=== PATIENT | male | born 1955 | race Caucasian/White ===

== ENCOUNTER 2020-06-26 17:28 | Emergency (ER) | payer OTHER, MEDICAID ==
[~2020-06-26] VITALS: Ht 170.2 cm; Wt 97.5 kg
[~2020-06-26 17:28] MED LIST: HYDR12.56; LISI-646
[2020-06-26 21:13] VITALS: BP 103/52
== END 2020-06-26 21:35 | disposition home or self-care (01) ==
LOC: ER 17:29
DX: S61.216A Laceration without foreign body of right little finger without damage to nail, initial encounter (principal); W23.0XXA Caught, crushed, jammed, or pinched between moving objects, initial encounter; Y93.89 Activity, other specified; Y92.89 Other specified places as the place of occurrence of the external cause; Y99.8 Other external cause status
CPT/HCPCS: 12001

== ENCOUNTER 2023-05-13 15:51 | Emergency (ER) | payer OTHER, MEDICAID ==
[~2023-05-13] VITALS: Ht 170.2 cm; Wt 80.4 kg
[~2023-05-13 15:51] MED LIST changes: -HYDR12.56; +HYDR12.59; -LISI-646; +LISI20TA56
[2023-05-13] MEDS ORDERED: CYCL-837 PO (20:30)
[2023-05-13] MEDS ORDERED: HYDROcodone-ACET 5/325MG TAB PO ONE (20:30)
[2023-05-13] MEDS ORDERED: IBUP-1455 PO (20:30)
[2023-05-13 21:00] VITALS: BP 119/77; PULSE 67; RESP 20; TEMP 98.1; O2SAT 100
== END 2023-05-13 21:02 | disposition home or self-care (01) ==
LOC: ER 15:51
DX: S00.01XA Abrasion of scalp, initial encounter (principal); I10 Essential (primary) hypertension; Z79.899 Other long term (current) drug therapy; W22.8XXA Striking against or struck by other objects, initial encounter; Y93.89 Activity, other specified; Y92.89 Other specified places as the place of occurrence of the external cause; Y99.8 Other external cause status
CPT/HCPCS: 70450; 72125

== ENCOUNTER 2024-02-21 03:33 | Emergency (ER) | payer OTHER, MEDICAID ==
[~2024-02-21] VITALS: Ht 170.2 cm; Wt 72.0 kg
[~2024-02-21 03:33] MED LIST changes: +CYCL-837 PO; +IBUP-1455 PO
[2024-02-21] MEDS: ONDANSETRON HCL 4 MG/2 ML VIAL IV ONE (04:23)
[2024-02-21 04:40] VITALS: RESP 96; O2SAT 96
[2024-02-21 04:43] LABS: Basophils # (auto) 0.1 10 ^3/uL (0-0.2); Basophils % (auto) 1.4 % (0.0-2.0); Eosinophils # (auto) 0.2 10 ^3/uL (0-0.8); Eosinophils % (auto) 3.9 % (0.0-7.0); Hematocrit 39.8 % (41.0-53.0); Lymphocytes # (auto) 0.7 10 ^3/uL (0.4-5.4); Lymphocytes % (auto) 15.9 % (10.0-50.0); Mean Corpuscular Hemoglobin 31.3 pg (28.0-32.0); Mean Corpuscular Hgb Conc. 35.2 g/dL (32.0-36.0); Mean Corpuscular Volume 89.1 fL (80.0-100.0); Monocytes # (auto) 0.7 10 ^3/uL (0-1.3); Monocytes % (auto) 14.9 % (0.0-12.0); Neutrophils # (auto) 2.8 10 ^3/uL (1.6-8.6); Neutrophils % (auto) 63.9 % (37.0-80.0); Nucleated Red Blood Cells % 0.1 %; Red Blood Cells 4.47 10^6/uL (4.5-5.90); Red Cell Distribution Width 15.3 % (11.8-14.3); White Blood Cell 4.4 10^3/uL (4.4-10.8)
[2024-02-21 04:57] LABS: Alanine Aminotransferase 19 U/L (7-40); Albumin 3.6 g/dL (3.2-4.8); Alkaline Phosphatase 53 U/L (46-116); Anion Gap 6 (5-15); Aspartate Aminotransferase 25 U/L (13-40); BUN/Creatinine Ratio 20.3 (10.0-20.0); Blood Urea Nitrogen 15 mg/dL (9-23); Calcium 9.7 mg/dL (8.7-10.4); Carbon Dioxide 25 mmol/L (20-30); Chloride 111 mmol/L (98-107); Glucose 120 mg/dL (74-106); Lipase 36 U/L (12-53); Potassium 3.2 mmol/L (3.5-5.1); Sodium 142 mmol/L (136-145)
[2024-02-21] MEDS: MORPHINE SULFATE 4 MG/ML SYR/VIAL IV ONE (05:17)
[2024-02-21] MEDS: SODIUM CHLORIDE 0.9% 1,000 ML IV ONE (05:18)
[2024-02-21] MEDS ORDERED: ZOFR4T PO (05:36)
[2024-02-21] MEDS: POTASSIUM CHL 20 Meq TABLET PO ONE (05:58)
[2024-02-21 08:04] VITALS: BP 109/75; PULSE 63; RESP 16; TEMP 98.7; O2SAT 95
== END 2024-02-21 13:37 | disposition home or self-care (01) ==
LOC: ER 03:33
DX: E86.0 Dehydration (principal); E87.6 Hypokalemia; I10 Essential (primary) hypertension; Z85.9 Personal history of malignant neoplasm, unspecified; Z79.899 Other long term (current) drug therapy
CPT/HCPCS: 36415; 74176; 80053; 83690; 84484; 85025; 96361; 96374; 96375; 99285; J2270; J2405; J7030

== ENCOUNTER 2024-03-10 19:50 | Emergency (ER) | payer OTHER, MEDICAID ==
[~2024-03-10] VITALS: Ht 170.2 cm; Wt 63.0 kg
[~2024-03-10 19:50] MED LIST changes: +ZOFR4T PO
[2024-03-10 21:37] LABS: Basophils # (auto) 0 10 ^3/uL (0-0.2); Basophils % (auto) 1.1 % (0.0-2.0); Eosinophils # (auto) 0.2 10 ^3/uL (0-0.8); Eosinophils % (auto) 5.6 % (0.0-7.0); Hematocrit 38.8 % (41.0-53.0); Hemoglobin 13.7 g/dL (13.5-17.5); Lymphocytes # (auto) 0.6 10 ^3/uL (0.4-5.4); Lymphocytes % (auto) 17.5 % (10.0-50.0); Mean Corpuscular Hemoglobin 31.6 pg (28.0-32.0); Mean Corpuscular Hgb Conc. 35.4 g/dL (32.0-36.0); Mean Corpuscular Volume 89.2 fL (80.0-100.0); Monocytes # (auto) 0.3 10 ^3/uL (0-1.3); Monocytes % (auto) 9.1 % (0.0-12.0); Neutrophils # (auto) 2.4 10 ^3/uL (1.6-8.6); Neutrophils % (auto) 66.7 % (37.0-80.0); Nucleated Red Blood Cells % 0.2 %; Red Blood Cells 4.35 10^6/uL (4.5-5.90); Red Cell Distribution Width 15.2 % (11.8-14.3); White Blood Cell 3.6 10^3/uL (4.4-10.8)
[2024-03-10 22:08] LABS: Alanine Aminotransferase 23 U/L (7-40); Albumin 3.3 g/dL (3.2-4.8); Alkaline Phosphatase 51 U/L (46-116); Anion Gap 7 (5-15); Aspartate Aminotransferase 17 U/L (13-40); BUN/Creatinine Ratio 9.5 (10.0-20.0); Bilirubin, Total 2.1 mg/dL (0.2-1.0); Blood Urea Nitrogen 6 mg/dL (9-23); Calcium 8.3 mg/dL (8.7-10.4); Carbon Dioxide 27 mmol/L (20-30); Chloride 105 mmol/L (98-107); Glucose 114 mg/dL (74-106); Lipase 43 U/L (12-53); Potassium 3.2 mmol/L (3.5-5.1); Sodium 139 mmol/L (136-145); Total Protein 5.6 g/dL (5.7-8.2)
[2024-03-11] MEDS: MORPHINE SULFATE 4 MG/ML SYR/VIAL IV ONE (01:55)
[2024-03-11] MEDS: SODIUM CHLORIDE 0.9% 1,000 ML IV ONE (01:56)
[2024-03-11] MEDS: POTASSIUM EFFERVESENT TAB 25 MEQ PO ONE (01:56)
[2024-03-11] MEDS: ONDANSETRON HCL 4 MG/2 ML VIAL IV ONE (01:56)
[2024-03-11 01:57] VITALS: BP 133/86; TEMP 97.9
[2024-03-11 02:03] VITALS: PULSE 70; RESP 20; O2SAT 98
== END 2024-03-11 02:04 | disposition home or self-care (01) ==
LOC: ER 19:50
DX: E87.6 Hypokalemia (principal); R10.30 Lower abdominal pain, unspecified; R11.2 Nausea with vomiting, unspecified; I10 Essential (primary) hypertension; Z85.9 Personal history of malignant neoplasm, unspecified; Z79.899 Other long term (current) drug therapy
CPT/HCPCS: 36415; 74176; 80053; 83690; 84484; 85025

== ENCOUNTER 2024-05-22 02:27 | Inpatient (IN) | payer OTHER, MEDICAID ==
[~2024-05-22] VITALS: Ht 170.2 cm; Wt 67.0 kg
[2024-05-22] VITALS (7 sets, daily range): BP systolic 115–144; BP diastolic 61–77; PULSE 40–57; RESP 12–19; TEMP 98.1–98.5; O2SAT 95–99
[2024-05-22 03:13] LABS: Basophils # (auto) 0 10 ^3/uL (0-0.2); Basophils % (auto) 1.2 % (0.0-2.0); Eosinophils # (auto) 0.2 10 ^3/uL (0-0.8); Eosinophils % (auto) 7.3 % (0.0-7.0); Hematocrit 31.5 % (41.0-53.0); Lymphocytes # (auto) 0.5 10 ^3/uL (0.4-5.4); Lymphocytes % (auto) 19.8 % (10.0-50.0); Mean Corpuscular Volume 97.3 fL (80.0-100.0); Monocytes # (auto) 0.4 10 ^3/uL (0-1.3); Monocytes % (auto) 12.9 % (0.0-12.0); Neutrophils # (auto) 1.6 10 ^3/uL (1.6-8.6); Neutrophils % (auto) 58.8 % (37.0-80.0); Nucleated Red Blood Cells % 0.1 %; Platelet Count (auto) 142 10^3/uL (140-450); Red Blood Cells 3.24 10^6/uL (4.5-5.90); White Blood Cell 2.7 10^3/uL (4.4-10.8)
[2024-05-22 03:30] LABS: Alanine Aminotransferase 42 U/L (7-40); Albumin 3.6 g/dL (3.2-4.8); Alkaline Phosphatase 58 U/L (46-116); Anion Gap 5 (5-15); Aspartate Aminotransferase 25 U/L (13-40); BUN/Creatinine Ratio 28.3 (10.0-20.0); Blood Urea Nitrogen 13 mg/dL (9-23); Calcium 8.8 mg/dL (8.7-10.4); Carbon Dioxide 28 mmol/L (20-31); Chloride 106 mmol/L (98-107); Glucose 83 mg/dL (74-106); Magnesium 1.7 mg/dL (1.6-2.6); Potassium 3.2 mmol/L (3.5-5.1); Sodium 139 mmol/L (136-145)
[2024-05-22 03:31] LABS: Bilirubin, Total 1.3 mg/dL (0.2-1.0); Total Protein 5.9 g/dL (5.7-8.2)
[2024-05-22] MEDS: SODIUM CHLORIDE 0.9% 1,000 ML IV ONE (03:31)
[2024-05-22 04:04] LABS: Rapid Influenza A Negative (Negative); Rapid Influenza B Negative (Negative)
[2024-05-22 04:06] LABS: COVID19 ANTIGEN SOFIA FIA POSITIVE (NEGATIVE)
[2024-05-22] MEDS: MORPHINE SULFATE 4 MG/ML SYR/VIAL IV ONE (04:25)
[2024-05-22] MEDS: ONDANSETRON HCL 4 MG/2 ML VIAL IV ONE (04:25)
[2024-05-22] MEDS: POTASSIUM CHL 20MEQ/100ML 100 ML IV SCH (05:09)
[2024-05-22] MEDS ORDERED: NITROGLYCERIN 0.4 MG SL TAB SL PRN (07:00)
[2024-05-22] MEDS ORDERED: DEXTROSE (50%) 50ML SYRG IV PRN (07:00)
[2024-05-22] MEDS ORDERED: MORPHINE SULFATE INJ 2 MG/ml SYRG IV PRN ×2 (07:00)
[2024-05-22] MEDS ORDERED: ACETAMINOPHEN 325 MG TAB PO PRN (07:00)
[2024-05-22] MEDS ORDERED: DOCUSATE SOD 100 MG CAP PO PRN (07:00)
[2024-05-22] MEDS: ZINC SULFATE 220mg CAP or TAB PO SCH (07:45)
[2024-05-22] MEDS: ASCORBIC ACID 500 MG TAB PO SCH (07:45)
[2024-05-22] MEDS: CHOLECALCIFEROL (VITD3) 1,000UNIT=25mCg TAB PO SCH (07:45)
[2024-05-22 07:52] LABS: Urine Bacteria None Seen /hpf (None Seen)
[2024-05-22 08:05] LABS: Urine Blood Negative /uL (Negative); Urine Clarity Clear (Clear); Urine Color Yellow (Yellow); Urine Mucus FEW (None Seen); Urine Protein, UAD Negative (Negative); Urine Specific Gravity 1.021 (1.001-1.035); Urine Urobilinogen Normal (Negative); Urine WBC 1 /hpf (0 - 3); Urine pH 5.5 (5.0-9.0)
[2024-05-22] MEDS: InsuLIN REG 1unit/0.01ml Soln (100units/ml) SC SCH (12:00)
[2024-05-22] MEDS: ACCU-CHEK COMFORT CURVE STRIP VI SCH (12:38)
[2024-05-22] MEDS: ENOXAPARIN SOD 40 MG/0.4 ML SYRINGE SC SCH (12:39)
[2024-05-22] MEDS ORDERED: TPN PER PHARMACY 0 ML IV SCH (13:15)
[2024-05-22] MEDS: D5W/SOD CHL 0.45% 1,000 ML IV SCH (15:39)
[2024-05-22 16:26] LABS: Basophils # (auto) 0 10 ^3/uL (0-0.2); Basophils % (auto) 1.6 % (0.0-2.0); Eosinophils # (auto) 0.1 10 ^3/uL (0-0.8); Eosinophils % (auto) 5.9 % (0.0-7.0); Hematocrit 31.6 % (41.0-53.0); Lymphocytes # (auto) 0.5 10 ^3/uL (0.4-5.4); Lymphocytes % (auto) 22.6 % (10.0-50.0); Mean Corpuscular Hgb Conc. 34.7 g/dL (32.0-36.0); Monocytes # (auto) 0.3 10 ^3/uL (0-1.3); Monocytes % (auto) 12.7 % (0.0-12.0); Neutrophils # (auto) 1.2 10 ^3/uL (1.6-8.6); Neutrophils % (auto) 57.2 % (37.0-80.0); Platelet Count (auto) 150 10^3/uL (140-450); Red Blood Cells 3.22 10^6/uL (4.5-5.90); Red Cell Distribution Width 16.4 % (11.8-14.3)
[2024-05-22 17:29] LABS: Anion Gap 3 (5-15); Carbon Dioxide 28 mmol/L (20-31); Chloride 108 mmol/L (98-107); Potassium 3.6 mmol/L (3.5-5.1); Sodium 139 mmol/L (136-145)
[2024-05-22 17:30] LABS: Calcium 8.3 mg/dL (8.7-10.4)
[2024-05-22 17:35] LABS: BUN/Creatinine Ratio 21.7 (10.0-20.0); Blood Urea Nitrogen 10 mg/dL (9-23); Glucose 85 mg/dL (74-106)
[2024-05-22] MEDS: AMINO ACID INFUSION IN D5W 1,000 ML IV NR (21:26)
[2024-05-23] VITALS (8 sets, daily range): BP systolic 116–150; BP diastolic 67–78; PULSE 38–61; RESP 18–20; TEMP 97.5–98.6; O2SAT 94–100
[2024-05-23] MEDS ORDERED: ATROPINE SULF 1 MG/10ml SYR IV PRN (01:30)
[2024-05-23] MEDS: MORPHINE SULFATE INJ 2 MG/ml SYRG IV PRN (03:57)
[2024-05-23 05:30] LABS: Basophils # (auto) 0 10 ^3/uL (0-0.2); Eosinophils # (auto) 0.1 10 ^3/uL (0-0.8); Lymphocytes # (auto) 0.5 10 ^3/uL (0.4-5.4); Mean Corpuscular Hgb Conc. 35.3 g/dL (32.0-36.0); Neutrophils # (auto) 1.3 10 ^3/uL (1.6-8.6); White Blood Cell 2.2 10^3/uL (4.4-10.8)
[2024-05-23 05:33] LABS: Basophils % (auto) 1.6 % (0.0-2.0); Eosinophils % (auto) 5.2 % (0.0-7.0); Hematocrit 30.8 % (41.0-53.0); Hemoglobin 10.9 g/dL (13.5-17.5); Lymphocytes % (auto) 21.4 % (10.0-50.0); Mean Corpuscular Hemoglobin 34.6 pg (28.0-32.0); Mean Corpuscular Volume 98.1 fL (80.0-100.0); Monocytes # (auto) 0.2 10 ^3/uL (0-1.3); Monocytes % (auto) 11.2 % (0.0-12.0); Neutrophils % (auto) 60.6 % (37.0-80.0); Nucleated Red Blood Cells % 0.1 %; Platelet Count (auto) 137 10^3/uL (140-450); Red Blood Cells 3.14 10^6/uL (4.5-5.90)
[2024-05-23 05:51] LABS: Anion Gap 6 (5-15); Carbon Dioxide 27 mmol/L (20-31); Chloride 107 mmol/L (98-107); Potassium 3.5 mmol/L (3.5-5.1); Sodium 140 mmol/L (136-145)
[2024-05-23 05:52] LABS: Calcium 8.3 mg/dL (8.7-10.4)
[2024-05-23 05:57] LABS: Glucose 105 mg/dL (74-106)
[2024-05-23 05:58] LABS: BUN/Creatinine Ratio 14.3 (10.0-20.0); Blood Urea Nitrogen 8 mg/dL (9-23); Magnesium 1.5 mg/dL (1.6-2.6)
[2024-05-23 05:59] LABS: Phosphorus 2.8 mg/dL (2.4-5.1)
[2024-05-23 07:14] LABS: Triglycerides 57 mg/dL (< 150)
[2024-05-23] MEDS: MAGNESIUM SULFATE 1GM/100ML 100 ML IV ONE (13:15)
[2024-05-23] MEDS ORDERED: REMDESIVIR PER PHARMACY 0 ML IV SCH (16:00)
[2024-05-23] MEDS: SOD CHL 0.45% 1,000 ML IV SCH (16:57)
[2024-05-23] MEDS: REMDESIVIR 200 MG in NS 210ml LOADING DOSE ADULT IV ONE (19:30)
[2024-05-23] MEDS ORDERED: TPN PER PHARMACY IV NR (20:00)
[2024-05-23] MEDS: TPN PER PHARMACY IV NR (20:00)
[2024-05-24] VITALS (8 sets, daily range): BP systolic 125–158; BP diastolic 77–85; PULSE 45–83; RESP 15–20; TEMP 98–98.7; O2SAT 95–100
[2024-05-24 05:54] LABS: Basophils # (auto) 0 10 ^3/uL (0-0.2); Eosinophils # (auto) 0.1 10 ^3/uL (0-0.8); Lymphocytes # (auto) 0.5 10 ^3/uL (0.4-5.4); Lymphocytes % (auto) 19.5 % (10.0-50.0); Monocytes # (auto) 0.3 10 ^3/uL (0-1.3); Neutrophils # (auto) 1.6 10 ^3/uL (1.6-8.6); White Blood Cell 2.6 10^3/uL (4.4-10.8)
[2024-05-24 05:58] LABS: Basophils % (auto) 0.9 % (0.0-2.0); Eosinophils % (auto) 3.5 % (0.0-7.0); Hematocrit 33.2 % (41.0-53.0); Hemoglobin 11.9 g/dL (13.5-17.5); Mean Corpuscular Hgb Conc. 35.9 g/dL (32.0-36.0); Mean Corpuscular Volume 97.5 fL (80.0-100.0); Monocytes % (auto) 13.2 % (0.0-12.0); Neutrophils % (auto) 62.9 % (37.0-80.0); Nucleated Red Blood Cells % 0.2 %; Platelet Count (auto) 129 10^3/uL (140-450); Red Blood Cells 3.41 10^6/uL (4.5-5.90); Red Cell Distribution Width 15.6 % (11.8-14.3)
[2024-05-24 06:03] LABS: Alanine Aminotransferase 38 U/L (7-40); Alkaline Phosphatase 52 U/L (46-116); Anion Gap 7 (5-15); Aspartate Aminotransferase 20 U/L (13-40); Blood Urea Nitrogen 7 mg/dL (9-23); Calcium 8.4 mg/dL (8.7-10.4); Carbon Dioxide 28 mmol/L (20-31); Chloride 106 mmol/L (98-107); Glucose 105 mg/dL (74-106); Magnesium 1.6 mg/dL (1.6-2.6); Potassium 3.3 mmol/L (3.5-5.1); Sodium 141 mmol/L (136-145)
[2024-05-24 06:04] LABS: Bilirubin, Total 1.4 mg/dL (0.2-1.0); Phosphorus 3.1 mg/dL (2.4-5.1)
[2024-05-24] MEDS: POTASSIUM PHOSPHATE 26.4 MEQ in SODIUM CHL 0.9% 100 ML IV ONE (11:35)
[2024-05-24] MEDS: REMDESIVIR 100mg 100 MG in SODIUM CHL 0.9% 230 ML IV SCH (16:18)
[2024-05-24] MEDS ORDERED: TPN PER PHARMACY IV NR (20:00)
[2024-05-24] MEDS: TPN PER PHARMACY IV NR (20:15)
[2024-05-25] VITALS (8 sets, daily range): BP systolic 118–160; BP diastolic 77–91; PULSE 50–64; RESP 15–18; TEMP 97.8–98.6; O2SAT 96–99
[2024-05-25 07:10] LABS: Alanine Aminotransferase 52 U/L (7-40); Albumin 3.1 g/dL (3.2-4.8); Alkaline Phosphatase 57 U/L (46-116); Anion Gap 6 (5-15); Aspartate Aminotransferase 29 U/L (13-40); BUN/Creatinine Ratio 18.2 (10.0-20.0); Bilirubin, Total 1.1 mg/dL (0.2-1.0); Blood Urea Nitrogen 8 mg/dL (9-23); Calcium 8.7 mg/dL (8.7-10.4); Carbon Dioxide 27 mmol/L (20-31); Chloride 105 mmol/L (98-107); Glucose 123 mg/dL (74-106); Magnesium 1.6 mg/dL (1.6-2.6); Phosphorus 3.5 mg/dL (2.4-5.1); Potassium 3.3 mmol/L (3.5-5.1); Sodium 138 mmol/L (136-145); Total Protein 5.3 g/dL (5.7-8.2)
[2024-05-25 07:46] LABS: Basophils # (auto) 0 10 ^3/uL (0-0.2); Eosinophils # (auto) 0.1 10 ^3/uL (0-0.8); Eosinophils % (auto) 2.2 % (0.0-7.0); Hematocrit 36.5 % (41.0-53.0); Hemoglobin 13.1 g/dL (13.5-17.5); Lymphocytes # (auto) 0.5 10 ^3/uL (0.4-5.4); Lymphocytes % (auto) 14.2 % (10.0-50.0); Mean Corpuscular Hemoglobin 34.9 pg (28.0-32.0); Mean Corpuscular Hgb Conc. 35.8 g/dL (32.0-36.0); Mean Corpuscular Volume 97.5 fL (80.0-100.0); Monocytes # (auto) 0.3 10 ^3/uL (0-1.3); Monocytes % (auto) 10.4 % (0.0-12.0); Neutrophils # (auto) 2.4 10 ^3/uL (1.6-8.6); Neutrophils % (auto) 72.2 % (37.0-80.0); Platelet Count (auto) 135 10^3/uL (140-450); Red Blood Cells 3.74 10^6/uL (4.5-5.90); Red Cell Distribution Width 15.6 % (11.8-14.3); White Blood Cell 3.3 10^3/uL (4.4-10.8)
[2024-05-25] MEDS ORDERED: POTASSIUM CHL 20MEQ/100ML 100 ML IV SCH (11:00)
[2024-05-25] MEDS: cloNIDine 0.1 mg/24hr 7 DAY PATCH TD SCH (11:17)
[2024-05-25] MEDS: POTASSIUM CHL 20MEQ/100ML 100 ML IV SCH (11:17)
[2024-05-25] MEDS ORDERED: TPN PER PHARMACY IV NR (20:00)
[2024-05-25] MEDS: AMINO ACID INFUSION IN D10W 1,000 ML IV SCH (23:45)
[2024-05-26] VITALS (10 sets, daily range): BP systolic 120–151; BP diastolic 75–89; PULSE 52–66; RESP 15–22; TEMP 97.8–98.4; O2SAT 97–100
[2024-05-26 06:13] LABS: Free Thyroxine Index 1.9 (1.2-4.9); Thyroxine (T4) 6.6 ug/dL (4.5-12.0)
[2024-05-26] MEDS: ONDANSETRON HCL 4 MG/2 ML VIAL IV PRN (06:22)
[2024-05-26 07:00] LABS: Alanine Aminotransferase 71 U/L (7-40); Albumin 3.3 g/dL (3.2-4.8); Alkaline Phosphatase 64 U/L (46-116); Anion Gap 6 (5-15); Aspartate Aminotransferase 40 U/L (13-40); BUN/Creatinine Ratio 21.3 (10.0-20.0); Basophils # (auto) 0 10 ^3/uL (0-0.2); Basophils % (auto) 1.1 % (0.0-2.0); Bilirubin, Total 1.3 mg/dL (0.2-1.0); Blood Urea Nitrogen 10 mg/dL (9-23); Calcium 8.7 mg/dL (8.7-10.4); Carbon Dioxide 26 mmol/L (20-31); Chloride 105 mmol/L (98-107); Eosinophils # (auto) 0.1 10 ^3/uL (0-0.8); Eosinophils % (auto) 2.4 % (0.0-7.0); Glucose 92 mg/dL (74-106); Hemoglobin 12.7 g/dL (13.5-17.5); Lymphocytes # (auto) 0.5 10 ^3/uL (0.4-5.4); Lymphocytes % (auto) 17.7 % (10.0-50.0); Magnesium 1.6 mg/dL (1.6-2.6); Mean Corpuscular Hemoglobin 34.6 pg (28.0-32.0); Mean Corpuscular Hgb Conc. 35.4 g/dL (32.0-36.0); Mean Corpuscular Volume 97.8 fL (80.0-100.0); Monocytes # (auto) 0.3 10 ^3/uL (0-1.3); Monocytes % (auto) 12.3 % (0.0-12.0); Neutrophils # (auto) 1.9 10 ^3/uL (1.6-8.6); Neutrophils % (auto) 66.5 % (37.0-80.0); Nucleated Red Blood Cells % 0.1 %; Phosphorus 3.1 mg/dL (2.4-5.1); Platelet Count (auto) 135 10^3/uL (140-450); Potassium 3.6 mmol/L (3.5-5.1); Red Blood Cells 3.68 10^6/uL (4.5-5.90); Sodium 137 mmol/L (136-145); Total Protein 5.6 g/dL (5.7-8.2); White Blood Cell 2.8 10^3/uL (4.4-10.8)
[2024-05-26] MEDS ORDERED: POTASSIUM CHL 20 Meq TABLET PO ONE (13:45)
[2024-05-26] MEDS: POTASSIUM EFFERVESENT TAB 25 MEQ PO ONE (15:44)
[2024-05-26] MEDS: MAGNESIUM SULFATE 1GM/100ML 100 ML IV ONE (15:44)
[2024-05-26] MEDS: TPN PER PHARMACY IV NR (20:46)
[2024-05-27] VITALS (10 sets, daily range): BP systolic 117–145; BP diastolic 72–81; PULSE 50–66; RESP 16–18; TEMP 36.7; O2SAT 92–99
[2024-05-27 05:51] LABS: Potassium 3.6 mmol/L (3.5-5.1)
[2024-05-27 05:52] LABS: Calcium 8.5 mg/dL (8.7-10.4)
[2024-05-27 05:53] LABS: Basophils # (auto) 0 10 ^3/uL (0-0.2); Basophils % (auto) 1.3 % (0.0-2.0); Eosinophils # (auto) 0.1 10 ^3/uL (0-0.8); Eosinophils % (auto) 3.4 % (0.0-7.0); Hemoglobin 12.5 g/dL (13.5-17.5); Lymphocytes # (auto) 0.5 10 ^3/uL (0.4-5.4); Lymphocytes % (auto) 19.4 % (10.0-50.0); Mean Corpuscular Hemoglobin 34.8 pg (28.0-32.0); Mean Corpuscular Hgb Conc. 35.8 g/dL (32.0-36.0); Mean Corpuscular Volume 97.3 fL (80.0-100.0); Monocytes # (auto) 0.3 10 ^3/uL (0-1.3); Monocytes % (auto) 13.8 % (0.0-12.0); Neutrophils # (auto) 1.5 10 ^3/uL (1.6-8.6); Neutrophils % (auto) 62.1 % (37.0-80.0); Nucleated Red Blood Cells % 0.1 %; Platelet Count (auto) 130 10^3/uL (140-450); Red Cell Distribution Width 15.9 % (11.8-14.3); White Blood Cell 2.3 10^3/uL (4.4-10.8)
[2024-05-27 05:57] LABS: BUN/Creatinine Ratio 26.1 (10.0-20.0)
[2024-05-27 05:58] LABS: Albumin 3.1 g/dL (3.2-4.8); Magnesium 1.7 mg/dL (1.6-2.6)
[2024-05-27 05:59] LABS: Phosphorus 3.5 mg/dL (2.4-5.1)
[2024-05-27] MEDS: amLODIPine BESYLATE 5 MG TAB PO SCH (11:30)
[2024-05-27] MEDS ORDERED: AMLO1TAB22 PO (13:21)
[2024-05-27 15:59] LABS: COVID19 ANTIGEN SOFIA FIA NEGATIVE (NEGATIVE)
[2024-05-27] MEDS ORDERED: TPN PER PHARMACY IV NR (20:00)
== END 2024-05-27 21:25 | disposition home health service (06) | DRG 177 ==
LOC: ER 02:27 → TELE 07:10 → TELE-EAST 15:32
PROVIDERS: ADMIT Internal Medicine; ATTEND Internal Medicine
PROC: XW033E5 Introduction of Remdesivir Anti-infective into Peripheral Vein, Percutaneous Approach, New Technology Group 5 (ICD-10-PCS; principal; 2024-05-27)
DX: U07.1 COVID-19 (principal); J12.82 Pneumonia due to coronavirus disease 2019; C16.9 Malignant neoplasm of stomach, unspecified; I10 Essential (primary) hypertension; R00.1 Bradycardia, unspecified; E87.6 Hypokalemia; J33.8 Other polyp of sinus; M47.812 Spondylosis without myelopathy or radiculopathy, cervical region; Z85.46 Personal history of malignant neoplasm of prostate; Z79.899 Other long term (current) drug therapy; Z79.1 Long term (current) use of non-steroidal anti-inflammatories (NSAID); Z86.16 Personal history of COVID-19; Z86.0100 Personal history of colon polyps, unspecified; Z85.028 Personal history of other malignant neoplasm of stomach; Z92.3 Personal history of irradiation
CPT/HCPCS: 36415; 70450; 71046; 72125; 80048; 80053; 80069; 81001; 82962; 83605; 83735; 83880; 84100; 84443; 84478; 84484; 85025; 87426; 87804; 92507; 92610; 93005; 93306; 97110; 97116; 97163; 97530; 99291; G0378; J1642; J2405; J3480; J7131